=== PATIENT | male | born 1965 | race Caucasian/White ===

== ENCOUNTER 2016-07-01 11:36 | Emergency (ER) | payer MEDICARE ==
[2016-07-01] MEDS ORDERED: ROCEPHIN 1 Gm-D5w 50 ml Bag** 50 ML IV ONE ×2 (11:43→11:50)
[2016-07-01] MEDS ORDERED: solu-MEDROL 125 MG IV ONE (11:43)
[2016-07-01] MEDS ORDERED: Zithromax 500 MG/ 250 ML NaCl Premix 250 ML IV ONE ×2 (11:43→12:04)
[2016-07-01] MEDS ORDERED: DUONEB 0.5-3 MG/3 ml Neb IH ONE ×2 (11:43→11:58)
[2016-07-01] MEDS ORDERED: Sodium Chloride 0.9% 1000 ML 1,000 ML IV SCH (11:45)
[2016-07-01] MEDS ORDERED: Sodium Chloride 0.9% 1000 ML 1,000 ML ONE (11:50)
[2016-07-01] MEDS ORDERED: solu-MEDROL 125 MG ONE (11:50)
[2016-07-01 12:00] LABS: Mean Cell Volume 96.4 fl (78-100); Mean Corpuscular Hemoglobin 31.8 pg (26-32); Mean Platelet Volume 9.8 fl (6-9.5); Platelet Count 139 K/mm3 (150-450); Red Blood Count 4.18 M/mm3 (4.1-5.6); Red Cell Distribution Width 13.6 % (11.5-14.0); White Blood Count 17.3 K/mm3 (4.0-10.5)
--- NOTE | 2016-07-01 12:03 | ERPHSYRPT ---
- History of Present Illness Time Seen by Provider: 07/01/16 11:59 Source: patient Exam Limitations: no limitations Patient Subjective Stated Complaint: sob Triage Nursing Assessment: sob since last night. states has had productive cough with thick sputum for weeks. no fever at home. wears 6l all times and cpap at night. lungs diminshed. moist cough noted. no edema noted. skin warm and dry. Physician History: 50-year-old male came to the emergency room with complaining of worsening shortness of breath since last night. Patient has a long history of pulmonary fibrosis and recurrent episodes of bronchitis. He is complaining of some take sputum with cough and fever for last 2-3 days. Patient states that he has a hard time coughing phlegm out. Today he shortness of breath got so more so he came to the emergency room. Timing/Duration: yesterday Activities at Onset: activity Severity of Dyspnea-Max: severe Severity of Dyspnea-Current: severe Possible Cause: frequent episodes Modifying Factors: Improves With: nothing Associated Symptoms: fever, wheezing, productive cough International travel in last 2 weeks: No Allergies/Adverse Reactions: No Known Drug Allergies Allergy (Verified 07/01/16 11:50) Home Medications: Albuterol Sulfate [Ventolin Hfa] 18 gm IH QID 10/13/14 [History] Budesonide/Formoterol Fumarate [Symbicort 160-4.5 Mcg Inhaler] 2 puffs IN BID [History] Furosemide [Lasix] 40 mg PO DAILY 10/13/14 [History] Potassium Chloride [K-Dur] 20 meq PO DAILY 10/13/14 [History] Albuterol Sulfate [Ventolin Hfa] 8 gm IH DAILY 10/26/14 [History] Losartan Potassium 50 mg [Cozaar 50 MG] 50 mg PO DAILY 02/21/15 [History] Metoprolol Succinate 25 mg Xl* [Toprol-Xl 25MG Tablets] 12.5 mg PO BID [History] Tiotropium [place] [Spiriva Respimat] 4 gm IH DAILY 02/21/15 [History] Hx Tetanus, Diphtheria Vaccination/Date Given: Yes Hx Influenza Vaccination/Date Given: Yes Hx Pneumococcal Vaccination/Date Given: Yes Immunizations Up to Date: Yes - Review of Systems Constitutional: No Fever, No Chills Eyes: No Symptoms Ears, Nose, & Throat: No Symptoms Respiratory: Cough, Dyspnea, Dyspnea on Exertion (QUISPE), Wheezing Cardiac: No Chest Pain, No Edema, No Syncope Abdominal/Gastrointestinal: No Abdominal Pain, No Nausea, No Vomiting, No Diarrhea Genitourinary Symptoms: No Dysuria Musculoskeletal: No Back Pain, No Neck Pain Skin: No Rash Neurological: No Dizziness, No Focal Weakness, No Sensory Changes Psychological: No Symptoms Endocrine: No Symptoms All Other Systems: Reviewed and Negative - Past Medical History Pertinent Past Medical History: Yes Neurological History: No Pertinent History ENT History: No Pertinent History Cardiac History: Hypertension Respiratory History: Bronchitis, COPD, Emphysema, Sleep Apnea Endocrine Medical History: No Pertinent History Musculoskeletal History: Arthritis GI Medical History: GERD, Ulcer History: No Pertinent History Psycho-Social History: No Pertinent History Male Reproductive Disorders: No Pertinent History Other Medical History: pulmonary fibrosis - Past Surgical History Past Surgical History: Yes Neuro Surgical History: No Pertinent History Cardiac: No Pertinent History Respiratory: No Pertinent History Gastrointestinal: Appendectomy Genitourinary: No Pertinent History Musculoskeletal: No Pertinent History Male Surgical History: No Pertinent History Other Surgical History: Biopsy of lymph nodes in lungs, T&A. - Social History Smoking Status: Former smoker How long have you smoked: 38 years Exposure to second hand smoke: No Drug Use: none Patient Lives Alone: Yes - Nursing Vital Signs Nursing Vital Signs: Initial Vital Signs Temperature 103 F Temperature Source Oral Pulse Rate 95 Respiratory Rate 28 Blood Pressure [] 108/82 Pain Intensity 0 - Physical Exam General Appearance: no apparent distress, alert Eye Exam: PERRL/EOMI Neck Exam: normal inspection, supple Respiratory Exam: respiratory distress, diminished breath sounds, accessory muscle use, prolonged expirations, crackles/rales, rhonchi, wheezing Cardiovascular/Chest Exam: normal heart sounds, regular rate/rhythm Abdominal/Gastrointestinal Exam: soft, No tenderness, No distention, No mass Extremity Exam: non-tender, normal range of motion, normal inspection, no calf tenderness, no pedal edema Neurologic Exam: alert, oriented x 3, cooperative, scientific research associate II-XII nml as tested, sensation nml, No motor deficits Skin Exam: normal color, warm, No dry SpO2 Interpretation: hypoxic SpO2: 65 Oxygen Delivery: Nasal Cannula - Course Nursing assessment & vital signs reviewed: Yes EKG Interpreted by Me: Sinus Tach - Radiology Exams Chest X-ray Interpretation: Reviewed by me (infiltrate/atelectesis) Ordered Tests: Active Orders 24 hr Category Date Time Status [facility]house Worker STAT Care 07/01/16 12:02 Active EKG-ER Only STAT Care 07/01/16 11:43 Active IV Insertion STAT Care 07/01/16 11:43 Active Oxygen-ED Only NASAL CANNULA 6 lpm Care 07/01/16 12:02 Active Pulse Oximetry (ED) STAT Care 07/01/16 11:43 Active CHEST 1 VIEW (PORTABLE) Stat Exams 07/01/16 11:43 Taken ABG [ARTERIAL BLOOD GASES] Stat Lab 07/01/16 13:05 Completed CBC W DIFF Stat Lab 07/01/16 11:55 Completed CMP Stat Lab 07/01/16 11:55 Completed Lactic Acid Stat Lab 07/01/16 11:55 Completed Manual Differential NC Stat Lab 07/01/16 11:55 Completed NT PRO BNP Stat Lab 07/01/16 11:55 Completed TROPONIN Stat Lab 07/01/16 11:55 Completed BiPap/CPAP Assessment STAT RT 07/01/16 11:43 Completed Respiratory Nebulizer STAT RT 07/01/16 11:44 Completed Medication Summary Discontinued Medications Generic Name Dose Route Start Last Admin Trade Name Freq PRN Reason Stop Dose Admin Albuterol/Ipratropium 3 ml 07/01/16 11:43 07/01/16 12:00 Duoneb 0.5-3 Mg/3 Ml Neb IH 07/01/16 11:44 3 ml STAT ONE Administration Albuterol/Ipratropium Confirm 07/01/16 11:58 Duoneb 0.5-3 Mg/3 Ml Neb Administered 07/01/16 11:59 Dose 3 ml IH .STK-MED ONE Azithromycin 250 mls @ 125 mls/hr 07/01/16 11:43 07/01/16 12:26 Zithromax 500 Mg/ 250 Ml Nacl Premix IV 07/01/16 13:42 125 mls/hr STAT ONE Administration Ceftriaxone Sodium/Dextrose 50 mls @ 100 mls/hr 07/01/16 11:43 07/01/16 11:54 Rocephin 1 Gm-D5w 50 Ml Bag IV 07/01/16 12:12 100 mls/hr STAT ONE Administration Sodium Chloride 1,000 mls @ 100 mls/hr 07/01/16 11:45 07/01/16 11:54 Sodium Chloride 0.9% 1000 Ml IV 07/31/16 11:44 100 mls/hr .Q10H ISAIAH Administration Ceftriaxone Sodium/Dextrose Confirm 07/01/16 11:50 Rocephin 1 Gm-D5w 50 Ml Bag Administered 07/01/16 11:51 Dose 50 mls @ ud IV .STK-MED ONE Azithromycin Confirm 07/01/16 12:04 Zithromax 500 Mg/ 250 Ml Nacl Premix Administered 07/01/16 12:05 Dose 250 mls @ ud IV .STK-MED ONE Sodium Chloride Confirm 07/01/16 11:50 Sodium Chloride 0.9% 1000 Ml Administered 07/01/16 11:51 Dose 1,000 mls @ ud .ROUTE .STK-MED ONE Methylprednisolone Sodium Succinate 125 mg 07/01/16 11:43 07/01/16 11:54 Solu-Medrol 125 Mg IV 07/01/16 11:44 125 mg STAT ONE Administration Methylprednisolone Sodium Succinate Confirm 07/01/16 11:50 Solu-Medrol 125 Mg Administered 07/01/16 11:51 Dose 125 mg .ROUTE .STK-MED ONE Lab/Rad Data: Laboratory Result Diagrams 07/01/16 11:55 07/01/16 11:55 Laboratory Results 07/01/16 07/01/16 07/01/16 Range/Units 13:05 11:55 11:55 WBC (4.0-10.5) K/mm3 RBC (4.1-5.6) M/mm3 Hgb (12.5-18.0) gm/dl Hct (42-50) % MCV (78-100) fl MCH (26-32) pg MCHC (32-36) g/dl RDW (11.5-14.0) % Plt Count (150-450) K/mm3 MPV (6-9.5) fl Segmented Neutrophils (36.-66.) % Band Neutrophils (0.0-2.0) % Lymphocytes (Manual) (24-44) % Monocytes (Manual) (0.0-12.0) % Differential Comment Toxic Granulation Platelet Estimate (NORMAL) Puncture Site LEFT RADIAL pCO2 45 (35-45) mmHg pO2 135 H* (75-100) mmHg Base Excess 3.2 H (-2.0-2.0) O2 Saturation 96.1 (94-100) g/dF ABG pH 7.41 (7.35-7.45) ABG HCO3 28.5 H (22-28) ABG O2 Sat (Measured) 99.6 (95-100) % Vimal Test YES A-a Gradient 308 a/A Ratio 0.30 Hemoglobin 13.5 Carboxyhemoglobin 2.2 (0.0-6.9) % THgb Methemoglobin 1.3 L (1.4-1.5) % Temperature 37.0 C POC O2 Flow Rate 70 % Vent Mode CPAP Expiratory BiPAP 10 Sodium (136-145) mEq/L Potassium 4.0 (3.5-5.1) mEq/L Chloride (98-107) mEq/L Carbon Dioxide (21-32) mEq/L Anion Gap (5-15) MEQ/L BUN (9-20) mg/dL Creatinine (0.55-1.30) mg/dl Estimated GFR ML/MIN Glucose (70-110) MG/DL Lactic Acid 2.2 H (0.4-2.0) Calcium (8.5-10.1) mg/dL Total Bilirubin (0.2-1.0) mg/dL AST (15-37) U/L ALT (12-78) U/L Alkaline Phosphatase (46-116) U/L Troponin I (0.000-0.056) ng/ml NT-Pro-B Natriuret Pep (0-125) pg/ml Serum Total Protein (6.4-8.2) gm/dL Albumin (3.4-5.0) g/dL Influenza Type A Ag NEGATIVE (NEGATIVE) Influenza Type B Ag NEGATIVE (NEGATIVE) RSV (PCR) NEGATIVE (Negative) 07/01/16 07/01/16 Range/Units 11:55 11:55 WBC 17.3 H (4.0-10.5) K/mm3 RBC 4.18 (4.1-5.6) M/mm3 Hgb 13.3 (12.5-18.0) gm/dl Hct 40.3 L (42-50) % MCV 96.4 (78-100) fl MCH 31.8 (26-32) pg MCHC 33.0 (32-36) g/dl RDW 13.6 (11.5-14.0) % Plt Count 139 L (150-450) K/mm3 MPV 9.8 H (6-9.5) fl Segmented Neutrophils 83 H (36.-66.) % Band Neutrophils 2 (0.0-2.0) % Lymphocytes (Manual) 12 L (24-44) % Monocytes (Manual) 3 (0.0-12.0) % Differential Comment NORMAL Toxic Granulation 1+ Platelet Estimate NORMAL (NORMAL) Puncture Site pCO2 (35-45) mmHg pO2 (75-100) mmHg Base Excess (-2.0-2.0) O2 Saturation (94-100) g/dF ABG pH (7.35-7.45) ABG HCO3 (22-28) ABG O2 Sat (Measured) (95-100) % Vimal Test A-a Gradient a/A Ratio Hemoglobin Carboxyhemoglobin (0.0-6.9) % THgb Methemoglobin (1.4-1.5) % Temperature C POC O2 Flow Rate % Vent Mode Expiratory BiPAP Sodium 135 L (136-145) mEq/L Potassium 4.0 (3.5-5.1) mEq/L Chloride 98 (98-107) mEq/L Carbon Dioxide 27.9 (21-32) mEq/L Anion Gap 13.5 (5-15) MEQ/L BUN 10 (9-20) mg/dL Creatinine 1.26 (0.55-1.30) mg/dl Estimated GFR > 60 ML/MIN Glucose 121 H (70-110) MG/DL Lactic Acid (0.4-2.0) Calcium 8.4 L (8.5-10.1) mg/dL Total Bilirubin 2.0 H (0.2-1.0) mg/dL AST 32 (15-37) U/L ALT 26 (12-78) U/L Alkaline Phosphatase 133 H (46-116) U/L Troponin I < 0.017 (0.000-0.056) ng/ml NT-Pro-B Natriuret Pep 714 H (0-125) pg/ml Serum Total Protein 8.0 (6.4-8.2) gm/dL Albumin 3.4 (3.4-5.0) g/dL Influenza Type A Ag (NEGATIVE) Influenza Type B Ag (NEGATIVE) RSV (PCR) (Negative) - Progress Progress: improved Air Movement: fair Blood Culture(s) Obtained: Yes Antibiotics given: Yes Discussed with Dr.: Cortés (wants patient to be transferred to Pulmonary services at [facility]) Will see patient in: other Counseled pt/family regarding: lab results, diagnosis, need for follow-up, rad results - Departure Time of Disposition: 12:56 Departure Disposition: Transfer ([facility] under hospitalist service, Pulmonary service on consult) Clinical Impression: Severe chronic obstructive pulmonary disease, COPD with acute exacerbation Pneumonia Qualifiers: Pneumonia type: due to unspecified organism Laterality: right Lung location: lower lobe of lung Qualified Code(s): J18.1 - Lobar pneumonia, unspecified organism Condition: Stable Critical Care Time: Yes Critical Care Time(excluding separately billable procedures): 30-74 minutes Referrals: KIMMY CORTÉS [Primary Care Provider] - Instructions: Chronic Obstructive Pulmonary Disease
[2016-07-01 12:25] LABS: ALBUMIN 3.4 g/dL (3.4-5.0); ALKALINE PHOSPHATASE 133 U/L (46-116); ANION GAP 13.5 MEQ/L (5-15); BLOOD UREA NITROGEN 10 mg/dL (9-20); CHLORIDE 98 mEq/L (98-107); Carbon Dioxide 27.9 mEq/L (21-32); Glucose 121 MG/DL (70-110); SGOT/AST 32 U/L (15-37); SGPT/ALT 26 U/L (12-78); SODIUM 135 mEq/L (136-145)
[2016-07-01 12:28] LABS: TROPONIN < 0.017 ng/ml (0.000-0.056)
[2016-07-01 13:03] LABS: BAND 2 % (0.0-2.0); Total Cells Counted 100
[2016-07-01 13:04] LABS: Platelet Estimate NORMAL (NORMAL); Toxic Granulation 1+
[2016-07-01 13:16] LABS: A-aADO2 308; ARTERIAL BLD GAS O2 SATURATION 99.6 % (95-100); ARTERIAL BLOOD GAS BASE EXCESS 3.2 (-2.0-2.0); ARTERIAL BLOOD GAS FIO2 70 %; ARTERIAL BLOOD GAS PO2 135 mmHg (75-100); ARTERIAL BLOOD GAS pH 7.41 (7.35-7.45)
[2016-07-01 13:17] LABS: ALLEN TEST OK? YES; BIPAP(E) 10
[2016-07-01 14:02] VITALS: BP 108/82; PULSE 95
[2016-07-01 18:56] VITALS: O2SAT 65
--- NOTE | 2016-07-01 22:20 | XRAY ---
Indication: Cough and short of breath. Comparison: June 13, 2016. Portable chest unchanged again with diffuse chronic interstitial fibrosis without focal infiltrate, consolidation, or large effusion. Heart and mediastinal structures are stable and within normal limits. Bony thorax intact. Impression: Stable nonacute chest with chronic features.
== END 2016-07-01 14:25 | disposition short-term general hospital (02) ==
LOC: ED 11:36
DX: J18.1 Lobar pneumonia, unspecified organism (principal); R05 Cough; R06.02 Shortness of breath; R50.9 Fever, unspecified; Z79.899 Other long term (current) drug therapy; I10 Essential (primary) hypertension; J44.9 Chronic obstructive pulmonary disease, unspecified
CPT/HCPCS: 36000; 36415; 36600; 71010; 80053; 82375; 82803; 83605; 83880; 84484; 85025; 87631; 93005; 93041; 94640; 94660; 96360; 96361; 96365; 96366; 96374; 99285; J0456; J0696; J2930; A9270-GY

== ENCOUNTER 2017-06-12 16:06 | Emergency (ER) | payer MEDICARE ==
[2017-06-12] MEDS ORDERED: DUONEB 0.5-3 MG/3 ml Neb IH ONE ×2 (16:18→16:37)
[2017-06-12] MEDS ORDERED: solu-MEDROL 125 MG IV ONE (16:18)
--- NOTE | 2017-06-12 16:24 | ERPHSYRPT ---
- History of Present Illness Time Seen by Provider: 06/12/17 16:21 Source: patient, family Exam Limitations: no limitations Patient Subjective Stated Complaint: pt here for abnormal labs,pt o2 sat low 84 %, pt wears o2 at 8 lnc all times, pt co cough, no fever, more sob with excertion Triage Nursing Assessment: pt walked in, resp labored, has dry cough, skin w/d/ p. decrease breath sounds, Physician History: mild to mod shortness of breath today, cough, no pain, no fever, worse with exertion, on home oxygen 8 liters, hx pulmonary fibrosis and htn and dm Allergies/Adverse Reactions: No Known Drug Allergies Allergy (Verified 06/12/17 16:20) Home Medications: Albuterol Sulfate [Ventolin Hfa] 18 gm IH QID 10/13/14 [History] Budesonide/Formoterol Fumarate [Symbicort 160-4.5 Mcg Inhaler] 2 puffs IN BID [History] Furosemide [Lasix] 40 mg PO DAILY 10/13/14 [History] Potassium Chloride [K-Dur] 20 meq PO DAILY 10/13/14 [History] Albuterol Sulfate [Ventolin Hfa] 8 gm IH DAILY 10/26/14 [History] Losartan Potassium 50 mg [Cozaar 50 MG] 50 mg PO DAILY 02/21/15 [History] Metoprolol Succinate 25 mg Xl* [Toprol-Xl 25MG Tablets] 12.5 mg PO BID [History] Tiotropium [place] [Spiriva Respimat] 4 gm IH DAILY 02/21/15 [History] Hx Tetanus, Diphtheria Vaccination/Date Given: Yes Hx Influenza Vaccination/Date Given: Yes Hx Pneumococcal Vaccination/Date Given: Yes Immunizations Up to Date: Yes - Review of Systems Constitutional: Fatigue, No Fever Eyes: No Symptoms Ears, Nose, & Throat: No Symptoms Respiratory: Cough, Dyspnea, Wheezing Cardiac: No Chest Pain Abdominal/Gastrointestinal: No Abdominal Pain Musculoskeletal: No Neck Pain Skin: No Rash Neurological: No Dizziness, No Focal Weakness - Past Medical History Pertinent Past Medical History: Yes Neurological History: No Pertinent History ENT History: No Pertinent History Cardiac History: Hypertension Respiratory History: Bronchitis, COPD, Emphysema, Sleep Apnea Endocrine Medical History: No Pertinent History, Diabetes Type II Musculoskeletal History: Arthritis GI Medical History: GERD, Ulcer History: No Pertinent History Psycho-Social History: No Pertinent History Male Reproductive Disorders: No Pertinent History Other Medical History: pulmonary fibrosis - Past Surgical History Past Surgical History: Yes Neuro Surgical History: No Pertinent History Cardiac: No Pertinent History Respiratory: No Pertinent History Gastrointestinal: Appendectomy Genitourinary: No Pertinent History Musculoskeletal: No Pertinent History Male Surgical History: No Pertinent History Other Surgical History: Biopsy of lymph nodes in lungs, T&A. - Social History Smoking Status: Former smoker How long have you smoked: 38 years Exposure to second hand smoke: No Drug Use: none Patient Lives Alone: No - Nursing Vital Signs Nursing Vital Signs: Initial Vital Signs Respiratory Rate 28 H 06/12/17 16:11 O2 Sat by Pulse Oximetry 100 06/12/17 16:11 Pain Scale Pain Intensity 4 - Physical Exam General Appearance: no apparent distress Eye Exam: PERRL/EOMI Ears, Nose, Throat Exam: normal pharynx Neck Exam: normal inspection Respiratory Exam: wheezing Cardiovascular/Chest Exam: regular rate/rhythm Abdominal/Gastrointestinal Exam: soft Extremity Exam: swelling Neurologic Exam: alert, oriented x 3, cooperative Skin Exam: warm, dry SpO2 Interpretation: hypoxic, ABG ordered, O2 applied SpO2: 100 Oxygen Delivery: Room Air - Course Nursing assessment & vital signs reviewed: Yes EKG Interpreted by Me: Other ([id number] 62 rbbb, similar to 04/2017) - Radiology Exams Chest X-ray Interpretation: Discussed w/ radiologist, Other (mild pul vas congestion) Ordered Tests: Active Orders 24 hr Category Date Time Status Radiologic Electronic Specialist STAT Care 06/12/17 16:19 Active EKG-ER Only STAT Care 06/12/17 16:18 Active IV Insertion STAT Care 06/12/17 16:18 Active Oxygen-ED Only VENTI-MASK 50% Care 06/12/17 16:18 Active CHEST 1 VIEW (PORTABLE) Stat Exams 06/12/17 16:37 Completed ARTERIAL BLOOD GASES Stat Lab 06/12/17 16:18 Completed BLOOD CULTURE Stat Lab 06/12/17 15:22 Received CBC W DIFF Stat Lab 06/12/17 16:25 Completed CMP Stat Lab 06/12/17 16:25 Completed CULTURE,SPUTUM Stat Lab 06/12/17 16:18 Uncollected D-DIMER QUANTITATION Stat Lab 06/12/17 16:25 Completed Lactic Acid Stat Lab 06/12/17 16:18 Completed NT PRO BNP Stat Lab 06/12/17 16:25 Completed PROTIME WITH INR Stat Lab 06/12/17 16:25 Completed TROPONIN Q3H Lab 06/12/17 16:25 Completed TROPONIN Q3H Lab 06/12/17 19:30 Ordered TROPONIN Q3H Lab 06/12/17 22:30 Ordered TROPONIN Q3H Lab 06/13/17 01:30 Ordered TROPONIN Q3H Lab 06/13/17 04:30 Ordered BiPap/CPAP Assessment STAT RT 06/12/17 16:18 Active Respiratory Nebulizer STAT RT 06/12/17 16:20 Completed Medication Summary Generic Name Dose Route Start Last Admin Trade Name Freq PRN Reason Stop Dose Admin Furosemide 20 mg 06/13/17 17:58 Lasix 20 Mg/2 Ml IV 06/13/17 17:59 DAILY ONE Discontinued Medications Generic Name Dose Route Start Last Admin Trade Name Freq PRN Reason Stop Dose Admin Albuterol/Ipratropium 3 ml 06/12/17 16:18 06/12/17 17:07 Duoneb 0.5-3 Mg/3 Ml Neb IH 06/12/17 16:19 3 ml STAT ONE Administration Albuterol/Ipratropium Confirm 06/12/17 16:37 Duoneb 0.5-3 Mg/3 Ml Neb Administered 06/12/17 16:38 Dose 3 ml IH .STK-MED ONE Methylprednisolone Sodium Succinate 125 mg 06/12/17 16:18 06/12/17 16:36 Solu-Medrol 125 Mg IV 06/12/17 16:19 125 mg STAT ONE Administration Methylprednisolone Sodium Succinate Confirm 06/12/17 16:33 Solu-Medrol 125 Mg Administered 06/12/17 16:34 Dose 125 mg .ROUTE .STK-MED ONE Lab/Rad Data: Laboratory Result Diagrams 06/12/17 16:25 06/12/17 16:25 Laboratory Results 06/12/17 06/12/17 06/12/17 Range/Units 16:25 16:25 16:25 WBC (4.0-10.5) K/mm3 RBC (4.1-5.6) M/mm3 Hgb (12.5-18.0) gm/dl Hct (42-50) % MCV (78-100) fl MCH (26-32) pg MCHC (32-36) g/dl RDW (11.5-14.0) % Plt Count (150-450) K/mm3 MPV (6-9.5) fl Gran % (36.0-66.0) % Lymphocytes % (24.0-44.0) % Monocytes % (0.0-12.0) % Eosinophils % (0.00-5.0) % Basophils % (0.0-0.4) % Basophils # (0-0.4) INR 1.22 (0.8-3.0) D-Dimer 443.23 (215-500) ng/mL Puncture Site pCO2 (35-45) mmHg pO2 (75-100) mmHg Base Excess (-2.0-2.0) O2 Saturation (94-100) g/dF ABG pH (7.35-7.45) ABG HCO3 (22-28) ABG O2 Sat (Measured) (95-100) % Vimal Test A-a Gradient a/A Ratio Hemoglobin Carboxyhemoglobin (0.0-6.9) % THgb Methemoglobin (1.4-1.5) % Potassium 4.5 (3.5-5.1) Temperature C POC O2 Flow Rate % Vent Mode Inspiratory BiPAP Expiratory BiPAP Sodium 141 (137-145) mmol/L Chloride 99 (98-107) mmol/L Carbon Dioxide 30 (22-30) mmol/L Anion Gap 16.8 H (5-15) MEQ/L BUN 21 H (9-20) mg/dL Creatinine 1.52 H (0.66-1.25) mg/dL Estimated GFR 52 ML/MIN Glucose 96 (74-106) mg/dL Lactic Acid (0.4-2.0) Calcium 9.4 (8.4-10.2) mg/dL Total Bilirubin 0.80 (0.2-1.3) mg/dL AST 61 H (17-59) U/L ALT 63 H (0-50) U/L Alkaline Phosphatase 131 H (38-126) U/L Troponin I < 0.012 (0.000-0.034) ng/mL NT-Pro-B Natriuret Pep 4740 H (0-900) pg/mL Serum Total Protein 7.5 (6.3-8.2) g/dL Albumin 4.4 (3.5-5.0) g/dL 06/12/17 06/12/17 Range/Units 16:25 16:18 WBC 9.3 (4.0-10.5) K/mm3 RBC 4.55 (4.1-5.6) M/mm3 Hgb 14.5 (12.5-18.0) gm/dl Hct 45.0 (42-50) % MCV 98.9 (78-100) fl MCH 31.9 (26-32) pg MCHC 32.2 (32-36) g/dl RDW 14.9 H (11.5-14.0) % Plt Count 198 (150-450) K/mm3 MPV 10.5 H (6-9.5) fl Gran % 62.8 (36.0-66.0) % Lymphocytes % 23.0 L (24.0-44.0) % Monocytes % 9.9 (0.0-12.0) % Eosinophils % 4.0 (0.00-5.0) % Basophils % 0.3 (0.0-0.4) % Basophils # 0.03 (0-0.4) INR (0.8-3.0) D-Dimer (215-500) ng/mL Puncture Site LEFT RADIAL pCO2 58 H (35-45) mmHg pO2 289 H* (75-100) mmHg Base Excess 2.3 H (-2.0-2.0) O2 Saturation 96.1 (94-100) g/dF ABG pH 7.32 L (7.35-7.45) ABG HCO3 29.9 H* (22-28) ABG O2 Sat (Measured) 100.0 (95-100) % Vimal Test YES A-a Gradient 352 a/A Ratio 0.45 Hemoglobin 14.2 Carboxyhemoglobin 2.9 (0.0-6.9) % THgb Methemoglobin 1.1 L (1.4-1.5) % Potassium 4.8 (3.5-5.1) Temperature 37.0 C POC O2 Flow Rate 100 % Vent Mode BiPAP Inspiratory BiPAP 12 Expiratory BiPAP 6 Sodium (137-145) mmol/L Chloride (98-107) mmol/L Carbon Dioxide (22-30) mmol/L Anion Gap (5-15) MEQ/L BUN (9-20) mg/dL Creatinine (0.66-1.25) mg/dL Estimated GFR ML/MIN Glucose (74-106) mg/dL Lactic Acid 0.7 (0.4-2.0) Calcium (8.4-10.2) mg/dL Total Bilirubin (0.2-1.3) mg/dL AST (17-59) U/L ALT (0-50) U/L Alkaline Phosphatase (38-126) U/L Troponin I (0.000-0.034) ng/mL NT-Pro-B Natriuret Pep (0-900) pg/mL Serum Total Protein (6.3-8.2) g/dL Albumin (3.5-5.0) g/dL - Progress Progress: improved Air Movement: fair Progress Note: 06/12/17 18:15 pt requests transfer to [place] [facility] Jerry at 18:06 accepts transfer to icu with pt on bipap Will see patient in: hospital (full admit) Counseled pt/family regarding: lab results, diagnosis, rad results - Departure Time of Disposition: 18:16 Departure Disposition: Transfer Clinical Impression: CHF (congestive heart failure) Qualifiers: Heart failure type: unspecified Heart failure chronicity: acute on chronic Qualified Code(s): I50.9 - Heart failure, unspecified Condition: Stable Critical Care Time: No Referrals: KIMMY AVALOS [Primary Care Provider] - Instructions: Heart Failure
[2017-06-12] MEDS ORDERED: solu-MEDROL 125 MG ONE (16:33)
--- NOTE | 2017-06-12 16:44 | XRAY ---
Indication: Cough, short of breath, and CHF. Comparison: July 01, 2016. Portable chest less inflated again with chronic interstitial fibrosis and a few calcified granulomas. Heart is now enlarged with small bibasilar effusions concerning for mild/early cardiac decompensation. Superimposed pneumonia not completely excluded.
[2017-06-12 16:54] LABS: BASOPHIL % 0.3 % (0.0-0.4); Basophil (Absolute #) 0.03 (0-0.4); Eosinophil (Absolute #) 0.37 (0-0.5); Granulocytes % 62.8 % (36.0-66.0); Hemoglobin 14.5 gm/dl (12.5-18.0); Lymphocyte (Absolute #) 2.13 (1.0-4.6); Mean Cell Volume 98.9 fl (78-100); Mean Corpuscular Hemoglobin 31.9 pg (26-32); Mean Corpuscular Hgb Concent. 32.2 g/dl (32-36); Mean Platelet Volume 10.5 fl (6-9.5); Monocyte (Absolute #) 0.92 (0.0-1.3); Monocytes % 9.9 % (0.0-12.0); Platelet Count 198 K/mm3 (150-450); Red Blood Count 4.55 M/mm3 (4.1-5.6); Red Cell Distribution Width 14.9 % (11.5-14.0); White Blood Count 9.3 K/mm3 (4.0-10.5)
[2017-06-12 17:19] LABS: INR 1.22 (0.8-3.0)
[2017-06-12 17:20] LABS: D-DIMER QUANTITATION 443.23 ng/mL (215-500)
[2017-06-12 17:24] LABS: ALBUMIN 4.4 g/dL (3.5-5.0); ANION GAP 16.8 MEQ/L (5-15); BILIRUBIN,TOTAL 0.8 mg/dL (0.2-1.3); Calcium 9.4 mg/dL (8.4-10.2); Creatinine 1 1.52 mg/dL (0.66-1.25); Potassium 4.5 mmol/L (3.5-5.1); Total Protein 7.5 g/dL (6.3-8.2)
[2017-06-12 17:29] LABS: A-aADO2 352; ABG HEMOGLOBIN 14.2; ABG POTASSIUM 4.8 (3.5-5.1); ABG SITE LEFT RADIAL; ALLEN TEST OK? YES; ARTERIAL BLOOD GAS BASE EXCESS 2.3 (-2.0-2.0); ARTERIAL BLOOD GAS FIO2 100 %; ARTERIAL BLOOD GAS PCO2 58 mmHg (35-45); ARTERIAL BLOOD GAS PO2 289 mmHg (75-100); ARTERIAL BLOOD GAS VENT MODE BiPAP; ARTERIAL BLOOD GAS pH 7.32 (7.35-7.45); CARBOXYHEMOGLOBIN 2.9 % THgb (0.0-6.9); HCO3- 29.9 (22-28); HGB O2 SAT 96.1 g/dF (94-100); Lactic Acid 0.7 (0.4-2.0); Methhemoglobin 1.1 % (1.4-1.5); paO2 pAO1 0.45
[2017-06-12 18:17] VITALS: O2SAT 100
[2017-06-12] MEDS ORDERED: Lasix 40 MG/4 ML ONE (19:05)
[2017-06-12 20:12] VITALS: BP 116/75; PULSE 59
[2017-06-13] MEDS ORDERED: Lasix 20 MG/2 ML IV ONE (17:58)
== END 2017-06-12 20:51 | disposition short-term general hospital (02) ==
LOC: ED 16:06
DX: I50.9 Heart failure, unspecified (principal); Z79.899 Other long term (current) drug therapy
CPT/HCPCS: 36000; 36415; 36600; 71045; 80053; 82375; 82803; 83605; 83880; 84484; 85025; 85379; 85610; 87040; 93005; 93041; 94002; 94640; 96365; 96366; 96374; 96375; 99285; J1940; J2930; A9270-GY

== ENCOUNTER 2017-12-26 19:54 | Emergency (ER) | payer MEDICARE ==
--- NOTE | 2017-12-26 20:26 | ERPHSYRPT ---
- History of Present Illness Time Seen by Provider: 12/26/17 20:21 Historian: patient Exam Limitations: no limitations Patient Subjective Stated Complaint: pt co rlq abdominal pain since earlier today; nausea but denies any vomiting; also co l hip pain near or at the iliac crest x3 days. Triage Nursing Assessment: pt a&o x3; skin p, w, & d; ambulated to room per self ; tender with palpation. Physician History: The patient is a 52-year-old male complaining of right sided abdominal pain and nausea since 3 PM today or 5 hours. He has not vomited. He denies fever or chills. He denies diarrhea. He ate breakfast but did not eat lunch. He's had an appendectomy. His past medical history significant for congestive heart failure, hypertension, idiopathic pulmonary fibrosis, GERD, and appendectomy.Pt also c/o left hip pain for a "few days." Timing/Duration: today, hour(s) (5), intermittent, sudden Activities at Onset: none Quality: pressure, sharpness, stabbing Abdominal Pain Onset Location: RLQ Pain Radiation: no radiation Severity of Pain-Max: moderate Severity of Pain-Current: moderate Modifying Factors: Improves With: nothing Associated Symptoms: diaphoresis, nausea, No diarrhea, No vomiting Previous symptoms: no prior history Allergies/Adverse Reactions: No Known Drug Allergies Allergy (Verified 12/26/17 20:17) Home Medications: Albuterol Sulfate [Ventolin Hfa] 18 gm IH QID 10/13/14 [History] Budesonide/Formoterol Fumarate [Symbicort 160-4.5 Mcg Inhaler] 2 puffs IN BID [History] Furosemide [Lasix] 40 mg PO DAILY 10/13/14 [History] Potassium Chloride [K-Dur] 20 meq PO DAILY 10/13/14 [History] Albuterol Sulfate [Ventolin Hfa] 8 gm IH DAILY 10/26/14 [History] Losartan Potassium 50 mg [Cozaar 50 MG] 50 mg PO DAILY 02/21/15 [History] Metoprolol Succinate 25 mg Xl* [Toprol-Xl 25MG Tablets] 12.5 mg PO BID [History] Tiotropium Hext [Spiriva Respimat] 4 gm IH DAILY 02/21/15 [History] Hx Tetanus, Diphtheria Vaccination/Date Given: Yes Hx Influenza Vaccination/Date Given: Yes Hx Pneumococcal Vaccination/Date Given: Yes Immunizations Up to Date: Yes - Review of Systems Constitutional: No Fever, No Chills Eyes: No Symptoms Ears, Nose, & Throat: No Symptoms Respiratory: No Cough, No Dyspnea Cardiac: No Chest Pain, No Edema, No Syncope Abdominal/Gastrointestinal: Abdominal Pain, Nausea, No Vomiting, No Diarrhea Genitourinary Symptoms: No Dysuria Musculoskeletal: No Back Pain, No Neck Pain Skin: No Rash Neurological: No Dizziness, No Focal Weakness, No Sensory Changes Psychological: No Symptoms Endocrine: No Symptoms Hematologic/Lymphatic: No Symptoms Immunological/Allergic: No Symptoms All Other Systems: Reviewed and Negative - Past Medical History Pertinent Past Medical History: Yes Neurological History: No Pertinent History ENT History: No Pertinent History Cardiac History: Hypertension Respiratory History: Bronchitis, COPD, Emphysema, Sleep Apnea Endocrine Medical History: No Pertinent History, Diabetes Type II Musculoskeletal History: Arthritis GI Medical History: GERD, Ulcer History: No Pertinent History Psycho-Social History: No Pertinent History Male Reproductive Disorders: No Pertinent History Other Medical History: pulmonary fibrosis - Past Surgical History Past Surgical History: Yes Neuro Surgical History: No Pertinent History Cardiac: No Pertinent History Respiratory: No Pertinent History Gastrointestinal: Appendectomy Genitourinary: No Pertinent History Musculoskeletal: No Pertinent History Male Surgical History: No Pertinent History Other Surgical History: Biopsy of lymph nodes in lungs, T&A. - Social History Smoking Status: Former smoker How long have you smoked: 38 years Exposure to second hand smoke: No Drug Use: none Patient Lives Alone: No - Nursing Vital Signs Nursing Vital Signs: Initial Vital Signs Temperature 98.8 F 12/26/17 20:03 Pulse Rate 80 12/26/17 20:03 Respiratory Rate 20 12/26/17 20:03 Blood Pressure 116/72 12/26/17 20:03 O2 Sat by Pulse Oximetry 90 L 12/26/17 20:03 Pain Scale Pain Intensity 3 - Physical Exam General Appearance: no apparent distress, alert Eye Exam: PERRL/EOMI, eyes nml inspection Ears, Nose, Throat Exam: normal ENT inspection, pharynx normal, moist mucous membranes Neck Exam: normal inspection, non-tender, supple, full range of motion Respiratory Exam: normal breath sounds, lungs clear, No respiratory distress Cardiovascular Exam: regular rate/rhythm, normal heart sounds Gastrointestinal/Abdomen Exam: normal bowel sounds, tenderness (RUQ) Rectal Exam: not done Back Exam: normal inspection, normal range of motion, No CVA tenderness, No vertebral tenderness Extremity Exam: pedal edema Neurologic Exam: alert, oriented x 3, cooperative, normal mood/affect, nml cerebellar function, sensation nml, No motor deficits Skin Exam: normal color, warm, dry, other (mid line abd surgical scar) SpO2 Interpretation: normal SpO2: 90 Oxygen Delivery: Oxymizer - Radiology Exams Chest X-ray Interpretation: Interpreted by me, No Pneumonia, Other (generalizeed pulmonary fibrosis, comp 2V chest 06/13/16.) - CT Exams Abdomen/Pelvis CT Interpretation: Tele-radiologist Report (per Dr RUCKER), Other (Midline ventral hernia with herniated knuckle of small bowel without obstruction or incarciration;) Ordered Tests: Active Orders 24 hr Category Date Time Status Clean Catch Urine Specimen STAT Care 12/26/17 20:28 Active IV Insertion STAT Care 12/26/17 20:28 Active ABDOMEN AND PELVIS W/0 CONTRAS [CT] Stat Exams 12/26/17 21:23 Taken CHEST 2 VIEWS (PA AND LAT) Stat Exams 12/26/17 20:28 Taken CBC W DIFF Stat Lab 12/26/17 20:45 Completed CMP Stat Lab 12/26/17 20:45 Completed LIPASE Stat Lab 12/26/17 20:45 Completed Lactic Acid Stat Lab 12/26/17 20:42 Completed NT PRO BNP Stat Lab 12/26/17 20:45 Completed TROPONIN Q3H Lab 12/26/17 20:45 Completed TROPONIN Q3H Lab 12/26/17 23:30 Ordered TROPONIN Q3H Lab 12/27/17 02:30 Ordered TROPONIN Q3H Lab 12/27/17 05:30 Ordered TROPONIN Q3H Lab 12/27/17 08:30 Ordered UA W/RFX UR CULTURE Stat Lab 12/26/17 21:00 Completed Medication Summary Generic Name Dose Route Start Last Admin Trade Name Freq PRN Reason Stop Dose Admin Sodium Chloride 1,000 mls @ 100 mls/hr 12/26/17 20:30 12/26/17 20:56 Sodium Chloride 0.9% 1000 Ml IV 01/25/18 20:29 100 mls/hr .Q10H ISAIAH Administration Discontinued Medications Generic Name Dose Route Start Last Admin Trade Name Km PRN Reason Stop Dose Admin Morphine Sulfate 4 mg 12/26/17 20:28 12/26/17 20:55 Morphine Sulfate 4 Mg Inj IV 12/26/17 20:29 4 mg STAT ONE Administration Morphine Sulfate Confirm 12/26/17 20:53 Morphine Sulfate 4 Mg Inj Administered 12/26/17 20:54 Dose 4 mg .ROUTE .STK-MED ONE Ondansetron HCl 4 mg 12/26/17 20:28 12/26/17 20:56 Zofran 4 Mg/2 Ml Vial IV 12/26/17 20:29 4 mg STAT ONE Administration Ondansetron HCl Confirm 12/26/17 20:53 Zofran 4 Mg/2 Ml Vial Administered 12/26/17 20:54 Dose 4 mg .ROUTE .STK-MED ONE Lab/Rad Data: Laboratory Result Diagrams 12/26/17 20:45 12/26/17 20:45 Laboratory Results 12/26/17 12/26/17 12/26/17 Range/Units 21:00 20:45 20:45 WBC (4.0-10.5) K/mm3 RBC (4.1-5.6) M/mm3 Hgb (12.5-18.0) gm/dl Hct (42-50) % MCV (78-100) fl MCH (26-32) pg MCHC (32-36) g/dl RDW (11.5-14.0) % Plt Count (150-450) K/mm3 MPV (6-9.5) fl Gran % (36.0-66.0) % Eos # (Auto) (0-0.5) Absolute Lymphs (auto) (1.0-4.6) Absolute Monos (auto) (0.0-1.3) Lymphocytes % (24.0-44.0) % Monocytes % (0.0-12.0) % Eosinophils % (0.00-5.0) % Basophils % (0.0-0.4) % Absolute Granulocytes (1.4-6.9) Basophils # (0-0.4) Sodium (137-145) mmol/L Potassium (3.5-5.1) mmol/L Chloride (98-107) mmol/L Carbon Dioxide (22-30) mmol/L Anion Gap (5-15) MEQ/L BUN (9-20) mg/dL Creatinine (0.66-1.25) mg/dL Estimated GFR ML/MIN Glucose (74-106) mg/dL Lactic Acid (0.4-2.0) Calcium (8.4-10.2) mg/dL Total Bilirubin (0.2-1.3) mg/dL AST (17-59) U/L ALT (0-50) U/L Alkaline Phosphatase (38-126) U/L Troponin I 0.013 (0.000-0.034) ng/mL NT-Pro-B Natriuret Pep 1900 H (0-900) pg/mL Serum Total Protein (6.3-8.2) g/dL Albumin (3.5-5.0) g/dL Lipase (23-300) U/L Urine Color STRAW (YELLOW) Urine Appearance CLEAR (CLEAR) Urine pH 7.0 (5-6) Ur Specific [place] 1.004 (1.005-1.025) Urine Protein NEGATIVE (Negative) Urine Ketones NEGATIVE (NEGATIVE) Urine Blood NEGATIVE (0-5) Baldo/ul Urine Nitrite NEGATIVE (NEGATIVE) Urine Bilirubin NEGATIVE (NEGATIVE) Urine Urobilinogen NEGATIVE (0-1) mg/dL Ur Leukocyte Esterase NEGATIVE (NEGATIVE) Urine WBC (Auto) 0-2 (0-5) /HPF Urine RBC (Auto) 0-2 (0-2) /HPF U Epithel Cells (Auto) NONE SEEN (FEW) /HPF Urine Mucus (Auto) SLIGHT (NEGATIVE) /HPF Urine Culture Reflexed NO (NO) Urine Glucose NEGATIVE (NEGATIVE) mg/dL 12/26/17 12/26/17 12/26/17 Range/Units 20:45 20:45 20:42 WBC 8.2 (4.0-10.5) K/mm3 RBC 3.92 L (4.1-5.6) M/mm3 Hgb 12.8 (12.5-18.0) gm/dl Hct 39.0 L (42-50) % MCV 99.5 (78-100) fl MCH 32.6 H (26-32) pg MCHC 32.8 (32-36) g/dl RDW 14.5 H (11.5-14.0) % Plt Count 141 L (150-450) K/mm3 MPV 9.9 H (6-9.5) fl Gran % 62.0 (36.0-66.0) % Eos # (Auto) 0.29 (0-0.5) Absolute Lymphs (auto) 1.96 (1.0-4.6) Absolute Monos (auto) 0.86 (0.0-1.3) Lymphocytes % 23.8 L (24.0-44.0) % Monocytes % 10.5 (0.0-12.0) % Eosinophils % 3.5 (0.00-5.0) % Basophils % 0.2 (0.0-0.4) % Absolute Granulocytes 5.09 (1.4-6.9) Basophils # 0.02 (0-0.4) Sodium 138 (137-145) mmol/L Potassium 3.9 (3.5-5.1) mmol/L Chloride 98 (98-107) mmol/L Carbon Dioxide 31 H (22-30) mmol/L Anion Gap 13.0 (5-15) MEQ/L BUN 10 (9-20) mg/dL Creatinine 0.98 (0.66-1.25) mg/dL Estimated GFR > 60.0 ML/MIN Glucose 91 (74-106) mg/dL Lactic Acid 1.1 (0.4-2.0) Calcium 9.3 (8.4-10.2) mg/dL Total Bilirubin 0.80 (0.2-1.3) mg/dL AST 17 (17-59) U/L ALT 10 (0-50) U/L Alkaline Phosphatase 96 (38-126) U/L Troponin I (0.000-0.034) ng/mL NT-Pro-B Natriuret Pep (0-900) pg/mL Serum Total Protein 6.7 (6.3-8.2) g/dL Albumin 4.1 (3.5-5.0) g/dL Lipase 41 (23-300) U/L Urine Color (YELLOW) Urine Appearance (CLEAR) Urine pH (5-6) Ur Specific [place] (1.005-1.025) Urine Protein (Negative) Urine Ketones (NEGATIVE) Urine Blood (0-5) Baldo/ul Urine Nitrite (NEGATIVE) Urine Bilirubin (NEGATIVE) Urine Urobilinogen (0-1) mg/dL Ur Leukocyte Esterase (NEGATIVE) Urine WBC (Auto) (0-5) /HPF Urine RBC (Auto) (0-2) /HPF U Epithel Cells (Auto) (FEW) /HPF Urine Mucus (Auto) (NEGATIVE) /HPF Urine Culture Reflexed (NO) Urine Glucose (NEGATIVE) mg/dL - Progress Progress: improved Counseled pt/family regarding: lab results, diagnosis, need for follow-up, rad results - Departure Time of Disposition: 23:02 Departure Disposition: Home Clinical Impression: Abdominal pain, Left hip pain Condition: Stable Critical Care Time: No Referrals: KIMMY AVALOS [Primary Care Provider] - Additional Instructions: You have abdominal pain. The cause of your abdominal pain is unclear at this time. You were given morphine 4 mg and Zofran 4 mg IV in the ER. You also have some left hip pain. The x-ray of your left hip was unremarkable. Take Zofran 4 mg ODT every 6 hours as needed. Take Tylenol 1000 mg every 6-8 hours as needed for pain. Follow-up with your primary medical doctor in one to 2 days. Prescriptions: Ondansetron ODT 4 MG [Zofran Odt 4 mg] 1 tab PO Q6H PRN PRN #10 tab.rapdis PRN Reason: Nausea/Vomiting
[2017-12-26] MEDS ORDERED: MORPHINE SULFATE 4 MG INJ IV ONE (20:28)
[2017-12-26] MEDS ORDERED: Zofran 4 MG/2 ML VIAL IV ONE (20:28)
[2017-12-26] MEDS ORDERED: Sodium Chloride 0.9% 1000 ML 1,000 ML IV SCH (20:30)
[2017-12-26] MEDS ORDERED: Sodium Chloride 0.9% 1000 ML 1,000 ML ONE (20:53)
[2017-12-26] MEDS ORDERED: Zofran 4 MG/2 ML VIAL ONE (20:53)
[2017-12-26] MEDS ORDERED: MORPHINE SULFATE 4 MG INJ ONE (20:53)
[2017-12-26 21:00] LABS: BASOPHIL % 0.2 % (0.0-0.4); Basophil (Absolute #) 0.02 (0-0.4); Eosinophil % 3.5 % (0.00-5.0); Eosinophil (Absolute #) 0.29 (0-0.5); Granulocyte Absolute (ANC) 5.09 (1.4-6.9); Hemoglobin 12.8 gm/dl (12.5-18.0); Lymphocyte (Absolute #) 1.96 (1.0-4.6); Lymphocytes % 23.8 % (24.0-44.0); Mean Cell Volume 99.5 fl (78-100); Mean Corpuscular Hgb Concent. 32.8 g/dl (32-36); Mean Platelet Volume 9.9 fl (6-9.5); Monocyte (Absolute #) 0.86 (0.0-1.3); Monocytes % 10.5 % (0.0-12.0); Platelet Count 141 K/mm3 (150-450); Red Blood Count 3.92 M/mm3 (4.1-5.6); Red Cell Distribution Width 14.5 % (11.5-14.0); White Blood Count 8.2 K/mm3 (4.0-10.5)
[2017-12-26 21:06] LABS: Mean Corpuscular Hemoglobin 32.6 pg (26-32)
[2017-12-26 21:25] LABS: ALBUMIN 4.1 g/dL (3.5-5.0); ALKALINE PHOSPHATASE 96 U/L (38-126); BLOOD UREA NITROGEN 10 mg/dL (9-20); CHLORIDE 98 mmol/L (98-107); Calcium 9.3 mg/dL (8.4-10.2); Carbon Dioxide 31 mmol/L (22-30); Creatinine 1 0.98 mg/dL (0.66-1.25); Glucose 91 mg/dL (74-106); LIPASE 41 U/L (23-300); Potassium 3.9 mmol/L (3.5-5.1); SGOT/AST 17 U/L (17-59); SGPT/ALT 10 U/L (0-50); SODIUM 138 mmol/L (137-145); Total Protein 6.7 g/dL (6.3-8.2)
[2017-12-26 21:32] LABS: Appearance CLEAR (CLEAR); Bilirubin NEGATIVE (NEGATIVE); Blood NEGATIVE Ery/ul (0-5); Glucose NEGATIVE (NEGATIVE); Ketones NEGATIVE (NEGATIVE); Leukocyte Esterase NEGATIVE (NEGATIVE); Nitrite NEGATIVE (NEGATIVE); Protein,Urine Dip NEGATIVE (Negative); Specific Gravity 1.004 (1.005-1.025); Urobilinogen NEGATIVE mg/dL (0-1)
[2017-12-26 22:51] VITALS: O2SAT 90
[2017-12-26 23:08] VITALS: BP 121/74; PULSE 78
--- NOTE | 2017-12-27 08:57 | XRAY ---
Indication: Right abdominal pain. Nausea. Multiple contiguous axial images obtained through the abdomen and pelvis without contrast as ordered. Comparison: None. Lung bases demonstrates bibasilar cystic fibrosis. No infiltrate or effusion. Heart is not enlarged. Noncontrasted stomach and bowel loops appear nonobstructed. Small descending duodenal diverticulum. Previous reported appendectomy. No free fluid/air. There is moderate-sized midline supraumbilical ventral hernia with knuckle of small bowel loop herniating. No obstruction/incarceration. Scattered hepatic/splenic calcified granulomas. Remaining liver, gallbladder, pancreas, spleen, adrenal glands, kidneys, ureters, bladder, and aorta appear unremarkable for noncontrast exam. Osseous structures intact with mild degenerative changes throughout the spine. Small fatty right inguinal hernia. Impression: 1. Midline ventral hernia with small bowel herniation. No obstruction/incarceration. 2. Duodenal diverticulum. 3. Fatty right inguinal hernia. 4. Visualized lungs demonstrates cystic fibrosis. 5. Remaining CT abdomen/pelvis without contrast exam is negative. CT DI 23.68
--- NOTE | 2017-12-27 08:59 | XRAY ---
Indication: COPD. Cystic fibrosis. Comparison: June 12, 2017. PA/lateral chest better inflated again with diffuse chronic interstitial fibrosis/known cystic fibrosis. No focal infiltrate, consolidation, or large effusion. Heart is not enlarged. Bony thorax intact again with mild degenerative changes and mild double curvature scoliosis. Impression: Nonacute chest with chronic features.
== END 2017-12-26 23:28 | disposition home or self-care (01) ==
LOC: ED 19:54
DX: R10.31 Right lower quadrant pain (principal); M25.552 Pain in left hip; R11.0 Nausea; R61 Generalized hyperhidrosis; Z79.899 Other long term (current) drug therapy; K43.9 Ventral hernia without obstruction or gangrene
CPT/HCPCS: 36000; 36415; 71046; 74176; 80053; 81001; 83605; 83690; 83880; 84484; 85025; 96360; 96374; 96375; 99284; J2270; J2405

== ENCOUNTER 2018-01-15 00:47 | Emergency (ER) | payer MEDICARE ==
--- NOTE | 2018-01-15 01:17 | ERPHSYRPT ---
- History of Present Illness Time Seen by Provider: 01/15/18 01:00 Source: patient, EMS Exam Limitations: no limitations Patient Subjective Stated Complaint: pt states he has had increased shortness of breath and nasal congestion at home Triage Nursing Assessment: pt alert and oriented, answers questions approp. pt ambulaot from ems stretcher to cot with no difficulty. pt with high flow o2 on per home cannula. skin warm and dry. occasional nonproductive cough noted. crackles noted to bilat bases. Physician History: 52 y/o white male presents with nasal congestion and soa this evening. pt has copd and is on 15L nc at home. pts last neb tx was at 1900 last pm. pt also has chf and is on 60mg po lasix daily. pt denies cp and denies abd pain. pt has h/o copd, emphysema, bronchitis and pulmonary fibrosis Timing/Duration: today Activities at Onset: none Severity of Dyspnea-Max: moderate Severity of Dyspnea-Current: mild Possible Cause: frequent episodes Modifying Factors: Improves With: activity Associated Symptoms: anxiety, cough, No constant, No intermittent, No chest pain /discomfort, No edema, No fever, No insomnia, No loss of appetite, No wheezing, No weakness, No ankle swelling, No chills, No hemoptysis, No calf pain, No dizziness, No heaviness, No heart racing, No lightheadedness, No leg swelling, No muscle spasms feet, No muscle spasms hands, No painful breathing, No productive cough, No sweating, No tightness, No tingling face, No tingling hands Allergies/Adverse Reactions: No Known Drug Allergies Allergy (Verified 01/15/18 01:06) Home Medications: Albuterol Sulfate [Ventolin Hfa] 18 gm IH QID 10/13/14 [History] Budesonide/Formoterol Fumarate [Symbicort 160-4.5 Mcg Inhaler] 2 puffs IN BID [History] Furosemide [Lasix] 60 mg PO DAILY 10/13/14 [History] Potassium Chloride [K-Dur] 20 meq PO DAILY 10/13/14 [History] Albuterol Sulfate [Ventolin Hfa] 8 gm IH DAILY 10/26/14 [History] Losartan Potassium 50 mg [Cozaar 50 MG] 25 mg PO DAILY 02/21/15 [History] Tiotropium [place] [Spiriva Respimat] 4 gm IH DAILY 02/21/15 [History] Carvedilol 3.125 mg [Coreg 3.125 MG] 3.125 mg PO BID 01/15/18 [History] Cholecalciferol (Vitamin D3) [Vitamin D] 400 unit PO 2XW 01/15/18 [History] Escitalopram Oxalate 10 mg [Lexapro 10 MG] 10 mg PO DAILY 01/15/18 [History] Metformin HCl 500 mg [Glucophage 500 MG] 1,000 mg PO BID 01/15/18 [History ] Nintedanib Esylate [Ofev] 150 mg PO DAILY 01/15/18 [History] Omeprazole 40 mg PO DAILY 01/15/18 [History] Ranitidine HCl 150 mg PO BID 01/15/18 [History] Sildenafil Citrate [Revatio] 20 mg PO TID 01/15/18 [History] Spironolactone 25 mg [Aldactone 25 MG] 12.5 mg PO DAILY 01/15/18 [History] Topiramate 50 mg PO TID 01/15/18 [History] Hx Tetanus, Diphtheria Vaccination/Date Given: Yes Hx Influenza Vaccination/Date Given: Yes Hx Pneumococcal Vaccination/Date Given: Yes Immunizations Up to Date: Yes - Review of Systems Constitutional: No Symptoms, No Fever Eyes: No Symptoms, No Discharge Ears, Nose, & Throat: No Symptoms, Nose Congestion, Mouth Pain, No Ear Pain, No Painful Swallowing Respiratory: Cough, Dyspnea, No Cyanosis, No Stridor, No Wheezing Cardiac: No Symptoms, No Chest Pain, No Palpitations, No Syncope Abdominal/Gastrointestinal: No Symptoms, No Abdominal Pain, No Nausea, No Vomiting, No Diarrhea Genitourinary Symptoms: No Symptoms, No Dysuria, No Frequency, No Hematuria Musculoskeletal: No Symptoms, Back Pain, No Neck Pain, No Deformity, No Fall, No Injury Skin: No Symptoms, No Cellulitis, No Decubiti, No Induration Neurological: No Symptoms, No Dizziness, No Focal Weakness Psychological: No Symptoms Endocrine: No Symptoms Hematologic/Lymphatic: No Symptoms Immunological/Allergic: No Symptoms All Other Systems: Reviewed and Negative - Past Medical History Pertinent Past Medical History: Yes Neurological History: No Pertinent History ENT History: No Pertinent History Cardiac History: Hypertension Respiratory History: Bronchitis, COPD, Emphysema, Sleep Apnea Endocrine Medical History: No Pertinent History, Diabetes Type II Musculoskeletal History: Arthritis GI Medical History: GERD, Ulcer History: No Pertinent History Psycho-Social History: No Pertinent History Male Reproductive Disorders: No Pertinent History Other Medical History: pulmonary fibrosis - Past Surgical History Past Surgical History: Yes Neuro Surgical History: No Pertinent History Cardiac: No Pertinent History Respiratory: No Pertinent History Gastrointestinal: Appendectomy Genitourinary: No Pertinent History Musculoskeletal: No Pertinent History Male Surgical History: No Pertinent History Other Surgical History: Biopsy of lymph nodes in lungs, T&A. - Social History Smoking Status: Former smoker How long have you smoked: 38 years Exposure to second hand smoke: No Drug Use: none Patient Lives Alone: Yes - Nursing Vital Signs Nursing Vital Signs: Initial Vital Signs Temperature 99.0 F 01/15/18 00:49 Pulse Rate 92 H 01/15/18 00:49 Respiratory Rate 22 01/15/18 00:49 Blood Pressure 102/73 01/15/18 00:49 O2 Sat by Pulse Oximetry 88 L 01/15/18 00:49 - Physical Exam General Appearance: mild distress, alert, anxiety Eye Exam: PERRL/EOMI Ears, Nose, Throat Exam: hearing grossly normal Neck Exam: normal inspection, non-tender, supple Respiratory Exam: normal breath sounds, No chest tenderness, No diminished breath sounds, No accessory muscle use, No rhonchi, No wheezing, No stridor, No other (pt speaking in full sentences) Cardiovascular/Chest Exam: normal heart sounds, regular rate/rhythm Abdominal/Gastrointestinal Exam: soft, normal bowel sounds, No tenderness, No guarding, No rebound Rectal Exam: not done Extremity Exam: No non-tender, No normal range of motion, No normal inspection Neurologic Exam: alert, oriented x 3, cooperative, shoe laster II-XII nml as tested, normal mood/affect Skin Exam: normal color, warm, dry Lymphatic Exam: No adenopathy SpO2 Interpretation: normal (for him) SpO2: 92 Oxygen Delivery: High Flow - Course Nursing assessment & vital signs reviewed: Yes EKG Interpreted by Me: RATE (86), Right Bundle Branch Block, Other (right ventricular hypertrophy; no changes from ekg dated 06/12/17) Ordered Tests: Active Orders 24 hr Category Date Time Status EKG-ER Only STAT Care 01/15/18 01:19 Active IV Insertion STAT Care 01/15/18 01:19 Active CHEST 1 VIEW (PORTABLE) Stat Exams 01/15/18 01:19 Taken CBC W DIFF Stat Lab 01/15/18 01:34 Completed CMP Stat Lab 01/15/18 01:34 Completed NT PRO BNP Stat Lab 01/15/18 01:34 Completed TROPONIN Q3H Lab 01/15/18 01:34 Completed TROPONIN Q3H Lab 01/15/18 04:30 Ordered TROPONIN Q3H Lab 01/15/18 07:30 Ordered TROPONIN Q3H Lab 01/15/18 10:30 Ordered TROPONIN Q3H Lab 01/15/18 13:30 Ordered Medication Summary Discontinued Medications Generic Name Dose Route Start Last Admin Trade Name Freq PRN Reason Stop Dose Admin Methylprednisolone Sodium Succinate 125 mg 01/15/18 01:19 01/15/18 01:38 Solu-Medrol 125 Mg IV 01/15/18 01:20 125 mg STAT ONE Administration Methylprednisolone Sodium Succinate Confirm 01/15/18 01:37 Solu-Medrol 125 Mg Administered 01/15/18 01:38 Dose 125 mg .ROUTE .STK-MED ONE Lab/Rad Data: Laboratory Result Diagrams 01/15/18 01:34 01/15/18 01:34 Laboratory Results 01/15/18 01/15/18 01/15/18 Range/Units 01:34 01:34 01:34 WBC 7.3 (4.0-10.5) K/mm3 RBC 3.70 L (4.1-5.6) M/mm3 Hgb 12.2 L (12.5-18.0) gm/dl Hct 37.0 L (42-50) % MCV 100.0 (78-100) fl MCH 32.9 H (26-32) pg MCHC 33.0 (32-36) g/dl RDW 14.9 H (11.5-14.0) % Plt Count 157 (150-450) K/mm3 MPV 9.4 (6-9.5) fl Gran % 55.7 (36.0-66.0) % Eos # (Auto) 0.42 (0-0.5) Absolute Lymphs (auto) 1.78 (1.0-4.6) Absolute Monos (auto) 1.04 (0.0-1.3) Lymphocytes % 24.3 (24.0-44.0) % Monocytes % 14.2 H (0.0-12.0) % Eosinophils % 5.7 H (0.00-5.0) % Basophils % 0.1 (0.0-0.4) % Absolute Granulocytes 4.09 (1.4-6.9) Basophils # 0.01 (0-0.4) Sodium 136 L (137-145) mmol/L Potassium 3.8 (3.5-5.1) mmol/L Chloride 98 (98-107) mmol/L Carbon Dioxide 30 (22-30) mmol/L Anion Gap 11.8 (5-15) MEQ/L BUN 9 (9-20) mg/dL Creatinine 0.86 (0.66-1.25) mg/dL Estimated GFR > 60.0 ML/MIN Glucose 89 (74-106) mg/dL Calcium 9.1 (8.4-10.2) mg/dL Total Bilirubin 0.80 (0.2-1.3) mg/dL AST 18 (17-59) U/L ALT 11 (0-50) U/L Alkaline Phosphatase 97 (38-126) U/L Troponin I < 0.012 (0.000-0.034) ng/mL NT-Pro-B Natriuret Pep 897 (0-900) pg/mL Serum Total Protein 7.1 (6.3-8.2) g/dL Albumin 3.9 (3.5-5.0) g/dL chronic bilat diffuse pulm fibrotic changes sl improved vs cxr dated 06/12/17 - Progress Progress: improved, re-examined Air Movement: good Blood Culture(s) Obtained: No Antibiotics given: No Counseled pt/family regarding: lab results, diagnosis, need for follow-up, rad results - Departure Time of Disposition: 02:38 Departure Disposition: Home Clinical Impression: COPD exacerbation, Pulmonary fibrosis Condition: Stable Critical Care Time: No Referrals: FAM GARBER [ACTIVE STAFF] - Instructions: Chronic Obstructive Pulmonary Disease Additional Instructions: drink plenty of fluids. follow up today with primary doctor for further management. use your nebulizer every 4 hours scheduled for next 24 hours. Prescriptions: Prednisone 10 mg [Deltasone 10 mg] 10 mg PO TID #12 tablet
[2018-01-15] MEDS ORDERED: solu-MEDROL 125 MG IV ONE (01:19)
[2018-01-15 01:37] LABS: BASOPHIL % 0.1 % (0.0-0.4); Basophil (Absolute #) 0.01 (0-0.4); Eosinophil % 5.7 % (0.00-5.0); Eosinophil (Absolute #) 0.42 (0-0.5); Granulocyte Absolute (ANC) 4.09 (1.4-6.9); Granulocytes % 55.7 % (36.0-66.0); Hemoglobin 12.2 gm/dl (12.5-18.0); Lymphocyte (Absolute #) 1.78 (1.0-4.6); Lymphocytes % 24.3 % (24.0-44.0); Mean Platelet Volume 9.4 fl (6-9.5); Monocyte (Absolute #) 1.04 (0.0-1.3); Monocytes % 14.2 % (0.0-12.0); Platelet Count 157 K/mm3 (150-450); Red Cell Distribution Width 14.9 % (11.5-14.0); White Blood Count 7.3 K/mm3 (4.0-10.5)
[2018-01-15] MEDS ORDERED: solu-MEDROL 125 MG ONE (01:37)
[2018-01-15 01:38] LABS: Mean Corpuscular Hemoglobin 32.9 pg (26-32)
[2018-01-15 02:03] LABS: ALBUMIN 3.9 g/dL (3.5-5.0); ALKALINE PHOSPHATASE 97 U/L (38-126); ANION GAP 11.8 MEQ/L (5-15); BLOOD UREA NITROGEN 9 mg/dL (9-20); CHLORIDE 98 mmol/L (98-107); Calcium 9.1 mg/dL (8.4-10.2); Carbon Dioxide 30 mmol/L (22-30); Creatinine 1 0.86 mg/dL (0.66-1.25); Glucose 89 mg/dL (74-106); NT PRO BNP 897 pg/mL (0-900); Potassium 3.8 mmol/L (3.5-5.1); SGOT/AST 18 U/L (17-59); SGPT/ALT 11 U/L (0-50); SODIUM 136 mmol/L (137-145); Total Protein 7.1 g/dL (6.3-8.2)
[2018-01-15 02:37] VITALS: BP 102/71; PULSE 84
[2018-01-15 02:39] VITALS: O2SAT 92
[2018-01-15] MEDS ORDERED: HYDROCODONE-ACETAMIN 2.5-108/5 ML SOLUTION PO STA (02:41)
[2018-01-15] MEDS ORDERED: HYDROCODONE-ACETAMIN 2.5-108/5 ML SOLUTION ONE (02:46)
--- NOTE | 2018-01-15 08:51 | XRAY ---
Indication: Short of breath. History cystic fibrosis. Comparison: December 26, 2017. Portable chest less inflated today and grossly unchanged again with diffuse chronic interstitial fibrosis/known cystic fibrosis. Heart and mediastinal structures within normal limits. No new/acute findings.
== END 2018-01-15 03:25 | disposition home or self-care (01) ==
LOC: ED 00:47
DX: J44.1 Chronic obstructive pulmonary disease with (acute) exacerbation (principal); J84.10 Pulmonary fibrosis, unspecified; Z79.899 Other long term (current) drug therapy; E11.9 Type 2 diabetes mellitus without complications; Z79.84 Long term (current) use of oral hypoglycemic drugs; F41.9 Anxiety disorder, unspecified; I50.9 Heart failure, unspecified
CPT/HCPCS: 36000; 36415; 71045; 80053; 83880; 84484; 85025; 93005; 96374; 99284; J2930; A9270-GY

== ENCOUNTER 2018-01-30 06:36 | Day surgery (SDC) | payer MEDICARE ==
--- NOTE | 2018-01-29 10:08 | HP ---
DATE OF SURGERY: 01/30/2018 ANTICIPATED PROCEDURE: EGD and colonoscopy. HISTORY OF PRESENT ILLNESS: The patient has anemia, presents for colonoscopy. PAST MEDICAL HISTORY: ALLERGIES: NONE. MEDICATIONS: Pepcid, Albuterol, Protonix, Lasix, Ventolin, Symbicort. Oxygen. PAST SURGICAL HISTORY: Appendectomy. SOCIAL HISTORY: Negative. FAMILY HISTORY: Negative. REVIEW OF SYSTEMS: Controlled hypertension, chronic obstructive pulmonary disease and peptic ulcer disease. PHYSICAL EXAMINATION: VITAL SIGNS: Normal. CHEST: Clear. COR: Regular. IMPRESSION: Anemia. PLAN: EGD and colonoscopy.
[2018-01-30] MEDS ORDERED: DIPRIVAN 200 MG/20 ML IV ONE (06:37)
[2018-01-30] MEDS ORDERED: Lactated Ringers 1,000 ML IV ONE (06:50)
[2018-01-30] MEDS ORDERED: Lactated Ringers 1,000 ML IV SCH (07:00)
--- NOTE | 2018-01-30 11:18 | OP ---
SURGERY DATE/TIME: 01/30/2018 0938 PREOPERATIVE DIAGNOSIS: Anemia. POSTOPERATIVE DIAGNOSES: 1) Basically normal upper GI. 2) One colon polyp. PROCEDURES: 1) Upper endoscopic examination. 2) Colonoscopy. SURGEON: Cali Wilson M.D. ANESTHESIA: MAC. COMPLICATIONS: None. CONDITION: Stable. INDICATION: DESCRIPTION OF PROCEDURE: The scope introduced down to gastroesophageal junction. The gastroesophageal junction satisfactory. Stomach satisfactory. Antrum, pylorus cannulated. Duodenal bulb, second portion, ampulla visualized. Scope withdrawn. No lesions were noted. Retroflex view no hiatal hernia. Scope withdrawn. Anal digital examination satisfactory. Scope introduced. Scope advanced to the cecum, base of cecum, ileocecal valve, ascending, hepatic, transverse, splenic, descending. In the distal sigmoid 8 mm polyp taken with hot biopsy forceps. Rectum and anus satisfactory. IMPRESSION: Successful polypectomy. The patient did not have a visible source of bleeding today.
[2018-01-30 11:25] VITALS: O2SAT 96
[2018-01-30 11:27] VITALS: BP 116/87; PULSE 78
== END 2018-01-30 11:35 | disposition home or self-care (01) ==
LOC: SDC 06:36
PROVIDERS: ATTEND Surgery
DX: K63.5 Polyp of colon (principal); D64.9 Anemia, unspecified; I10 Essential (primary) hypertension; J44.9 Chronic obstructive pulmonary disease, unspecified; K27.9 Peptic ulcer, site unspecified, unspecified as acute or chronic, without hemorrhage or perforation; Z79.899 Other long term (current) drug therapy
CPT/HCPCS: 88305; 94250; J2704

== ENCOUNTER 2018-02-06 15:18 | Emergency (ER) | payer MEDICARE ==
--- NOTE | 2018-02-06 15:50 | ERPHSYRPT ---
- History of Present Illness Time Seen by Provider: 02/06/18 15:48 Source: patient Patient Subjective Stated Complaint: Pt states "My legs started to swell a week ago and my home health aide contacted my physician and they said to contact my shipping and receiving supervisor, Dr. Mcgarry. Dr. Mcgarry said either come to my office or go to the ed and I did not want to go to [place] so I came here." Triage Nursing Assessment: Pt alert and oriented X 3, skin pwd. PT ambulate with an upright steady gait, able to speak in clear full sentences. PT has high flow nasal canula on upon arrival with 15 lpm supplimental O2. pt legs slightly swollen, right leg more than the left, +2 pitting edema noted in rt leg. Physician History: mild edema of both lower legs for one week, no increased shortness of breath, no injury, no fever, no pain Allergies/Adverse Reactions: No Known Drug Allergies Allergy (Verified 01/30/18 06:54) Home Medications: Budesonide/Formoterol Fumarate [Symbicort 160-4.5 Mcg Inhaler] 2 puffs IN BID [History] Furosemide [Lasix] 40 mg PO DAILY 10/13/14 [History] Albuterol Sulfate [Ventolin Hfa] 8 gm IH DAILY 10/26/14 [History] Tiotropium [place] [Spiriva Respimat] 4 gm IH DAILY 02/21/15 [History] Carvedilol 3.125 mg [Coreg 3.125 MG] 3.125 mg PO BID 01/15/18 [History] Cholecalciferol (Vitamin D3) [Vitamin D] 400 unit PO 2XW 01/15/18 [History] Escitalopram Oxalate 10 mg [Lexapro 10 MG] 10 mg PO DAILY 01/15/18 [History] Nintedanib Esylate [Ofev] 150 mg PO BID 01/15/18 [History] Omeprazole 40 mg PO DAILY 01/15/18 [History] Ranitidine HCl 150 mg PO BID 01/15/18 [History] Sildenafil Citrate [Revatio] 20 mg PO TID 01/15/18 [History] Spironolactone 25 mg [Aldactone 25 MG] 12.5 mg PO DAILY 01/15/18 [History] Topiramate 50 mg PO TID 01/15/18 [History] Metformin HCl 500 mg [Glucophage 500 MG] 500 mg PO BIDWM 01/30/18 [History ] Potassium Chloride 10 Meq Tab* [Klor Con 10 MEQ] 10 meq PO DAILY 01/30/18 [ History] Hx Tetanus, Diphtheria Vaccination/Date Given: Yes Hx Influenza Vaccination/Date Given: Yes Hx Pneumococcal Vaccination/Date Given: Yes Immunizations Up to Date: Yes - Review of Systems Constitutional: No Fever Eyes: No Vision Changes Ears, Nose, & Throat: No Mouth Pain Respiratory: No Cyanosis Cardiac: No Chest Pain Abdominal/Gastrointestinal: No Abdominal Pain Genitourinary Symptoms: No Dysuria Musculoskeletal: No Back Pain Skin: No Skin Lesions Neurological: No Dizziness - Past Medical History Pertinent Past Medical History: Yes Neurological History: Other ENT History: No Pertinent History Cardiac History: Arrhythmia, Congestive Heart Failure, Coronary Artery Disease, Hypertension Respiratory History: Bronchitis, COPD, Emphysema, Sleep Apnea, Other Endocrine Medical History: Diabetes Type II Musculoskeletal History: Arthritis GI Medical History: GERD, Ulcer History: No Pertinent History Psycho-Social History: No Pertinent History Male Reproductive Disorders: No Pertinent History Other Medical History: pulmonary fibrosis. pulmonary HTN. tremors. takes metformin for " weight loss" denies any knowledge of being diabetic. - doesn not monitor blood sugar. - Past Surgical History Past Surgical History: Yes Neuro Surgical History: No Pertinent History Cardiac: Cardiac Catheterization Respiratory: No Pertinent History Gastrointestinal: Appendectomy Genitourinary: No Pertinent History Musculoskeletal: No Pertinent History Male Surgical History: No Pertinent History Other Surgical History: Biopsy of lymph nodes in lungs, T&A. heart cath x2 - Social History Smoking Status: Former smoker How long have you smoked: 38 years Exposure to second hand smoke: Yes Drug Use: none Patient Lives Alone: Yes - Nursing Vital Signs Nursing Vital Signs: Initial Vital Signs Temperature 97.9 F 02/06/18 15:31 Pulse Rate 68 02/06/18 15:31 Respiratory Rate 18 02/06/18 15:31 Blood Pressure 112/70 02/06/18 15:31 O2 Sat by Pulse Oximetry 97 02/06/18 15:31 Pain Scale Pain Intensity 0 - Physical Exam General Appearance: no apparent distress Eye Exam: eyes nml inspection Ears, Nose, Throat Exam: moist mucous membranes Neck Exam: normal inspection Respiratory Exam: normal breath sounds Cardiovascular Exam: regular rate/rhythm Gastrointestinal/Abdomen Exam: soft Extremity Exam: normal range of motion, pedal edema, swelling Neurologic Exam: alert, oriented x 3, cooperative Skin Exam: warm, dry SpO2 Interpretation: normal SpO2: 97 Oxygen Delivery: Nasal Cannula - Course Nursing assessment & vital signs reviewed: Yes - Radiology Ultrasound Exam Venous Lower Extremity Ultrasound: discussed w/radiologist, Other (no dvt in either lower extremity) Ordered Tests: Active Orders 24 hr Category Date Time Status VENOUS BILATERAL EXTREMITY [US] Stat Exams 02/06/18 Ordered - Progress Progress: unchanged Counseled pt/family regarding: diagnosis, need for follow-up, rad results - Departure Time of Disposition: 16:09 Departure Disposition: Home Clinical Impression: Edema Qualifiers: Edema type: unspecified Qualified Code(s): R60.9 - Edema, unspecified Condition: Stable Critical Care Time: No Referrals: KIMMY AVALOS [Primary Care Provider] - Instructions: Dependent Edema (DC) Additional Instructions: see your doctor, return if worse, continue present medical regimen
[2018-02-06 16:13] VITALS: BP 116/67; PULSE 60; O2SAT 98
--- NOTE | 2018-02-06 16:34 | XRAY ---
Indication: DVT. 2-dimensional sonogram and color Doppler imaging of the major venous vessels of the left and right leg was performed. Comparison: None No thrombus seen in the examined deep venous vessels of the left and right leg including greater saphenous veins. Veins demonstrate normal compressibility. Venous waveforms are normal with and without augmentation. Impression: Left and right legs negative for DVT.
== END 2018-02-06 16:31 | disposition home or self-care (01) ==
LOC: ED 15:18
DX: R60.9 Edema, unspecified (principal); Z79.899 Other long term (current) drug therapy
CPT/HCPCS: 93970; 99283